=== PATIENT | male | born 1995 | race Caucasian/White ===

== ENCOUNTER → 2016-10-30 | Outpatient (CLI) | payer OTHER ==
--- NOTE | 2016-10-30 13:08 | US ---
EXAMINATION TYPE: US kidneys/renal and bladder DATE OF EXAM: 10/30/2016 12:51 PM COMPARISON: NONE CLINICAL HISTORY: R10.9 FLANK PAIN. Right flank pain. Patients states having a fever last night. Pa tient states after voiding, doesn't feel he complete empties and has constant urge to urinate. EXAM MEASUREMENTS: Right Kidney: 11.2 x 5.8 x 5.4 cm Left Kidney: 11.4 x 5.1 x 5.5 cm Post Void Residual Volume: 11.8 mL Right Kidney: wnl Left Kidney: wnl Bladder: Distended. Thickened wall- 6.3 mm. Post void wall= 11.7 mm Bilateral Jets seen Normal Post Void Residual There is no evidence for hydronephrosis at this point in time. No nephrolithiasis is seen. No vlad s are identified. The urinary bladder is anechoic. Urinary bladder wall is thickened. Bilateral uret eral jets are seen. IMPRESSION: Thickening of the urinary bladder wall may reflect cystitis. Correlate clinically.
== END | disposition home or self-care (01) ==
LOC: RADUSWWP 12:21
PROVIDERS: ATTEND Family Medicine
DX: R93.49 Abnormal radiologic findings on diagnostic imaging of other urinary organs (principal); R10.9 Unspecified abdominal pain
CPT/HCPCS: 76770; 80048; 85025; 87086